=== PATIENT | male | born 1945 | race Caucasian/White ===

== ENCOUNTER 2017-05-25 15:18 | Emergency (ER) | payer OTHER ==
--- NOTE | 2017-05-28 19:03 | ER ---
ADMIT: 05/25/2017 RM/LOC: ER [facility] MR#: [id number] [address] [facility] [address] [id number] [place] [address] [place] [address] Emergency Room Report SEX: M AGE: 72 : 1945 DATE: 05/25/2017 ADDENDUM: A 72-year-old white male coming in with kind of atypical chest pain. CBC, chemistry, EKG, were all negative. He does not usually take nitroglycerin because it causes him significant headache, so they do not give that to him. He has had heart cath before. He does have nonobstructive coronary disease, but the CT has said he does not need a stent. At this time, he is to continue his medications and then follow up with the CT. CONDITION ON DISCHARGE: Good. Fili Doyle MD/ [place] JOB #: [id number] CC: Fili Doyle MD, Attending Physician [facility] Phys[facility], Family Physician
== END 2017-05-25 17:24 | disposition home or self-care (01) ==
LOC: ER 15:18
DX: R07.89 Other chest pain (principal); R53.1 Weakness; E11.9 Type 2 diabetes mellitus without complications; I25.10 Atherosclerotic heart disease of native coronary artery without angina pectoris; F17.210 Nicotine dependence, cigarettes, uncomplicated; J45.909 Unspecified asthma, uncomplicated; F32.9 Major depressive disorder, single episode, unspecified; Z87.19 Personal history of other diseases of the digestive system; Z79.01 Long term (current) use of anticoagulants; Z98.890 Other specified postprocedural states; Z79.899 Other long term (current) drug therapy